=== PATIENT | female | born 1995 | race Caucasian/White ===

== ENCOUNTER 2018-02-16 03:28 | Emergency (ER) | payer MEDICAID ==
[~2018-02-16] VITALS: Ht 157.5 cm; Wt 68.5 kg
[~2018-02-16 03:28] MED LIST: CLIN-26 PO; IBUP-812 PO; NO HOME MEDS
[2018-02-16 03:41] VITALS: BP 142/87
[2018-02-16] MEDS ORDERED: amoxicillin 250mg capsule PO ONE (04:05)
[2018-02-16] MEDS ORDERED: ibuprofen tablet 400 MG TABLET PO ONE (04:05)
[2018-02-16] MEDS ORDERED: LIDOcaine Viscous 15ml cup TP ONE (04:05)
[2018-02-16] MEDS ORDERED: IBUP-1984 PO (04:18)
[2018-02-16] MEDS ORDERED: AMOX500C2 PO (04:18)
[2018-02-16] MEDS ORDERED: HYDR-3965 PO (04:18)
== END 2018-02-16 04:29 | disposition home or self-care (01) ==
LOC: ER 03:29
DX: S02.5XXB Fracture of tooth (traumatic), initial encounter for open fracture (principal); F17.200 Nicotine dependence, unspecified, uncomplicated; Z88.5 Allergy status to narcotic agent; X58.XXXA Exposure to other specified factors, initial encounter; Y93.89 Activity, other specified; Y92.89 Other specified places as the place of occurrence of the external cause; Y99.8 Other external cause status
CPT/HCPCS: 99284

== ENCOUNTER 2019-06-20 19:04 | Emergency (ER) | payer MEDICAID ==
[~2019-06-20] VITALS: Ht 160 cm; Wt 85.0 kg
[~2019-06-20 19:04] MED LIST changes: +DOCO2CRE TOP
[2019-06-20 19:12] VITALS: BP 130/88
[2019-06-20] MEDS ORDERED: diphenhydrAMINE 25mg capsule PO ONE (19:45)
== END 2019-06-20 19:58 | disposition home or self-care (01) ==
LOC: ER 19:05
DX: T63.441A Toxic effect of venom of bees, accidental (unintentional), initial encounter (principal); Z88.5 Allergy status to narcotic agent; Y92.89 Other specified places as the place of occurrence of the external cause
CPT/HCPCS: 99282; Q0163

== ENCOUNTER 2019-09-09 09:48 | Emergency (ER) | payer MEDICAID ==
[~2019-09-09] VITALS: Ht 157.5 cm; Wt 89.2 kg
[2019-09-09 09:48] VITALS: BP 164/71
[2019-09-09] MEDS ORDERED: VALA10002 PO (10:12)
== END 2019-09-09 10:22 | disposition home or self-care (01) ==
LOC: ER 09:48
DX: B00.9 Herpesviral infection, unspecified (principal); R05 Cough; F17.200 Nicotine dependence, unspecified, uncomplicated; F10.99 Alcohol use, unspecified with unspecified alcohol-induced disorder; F12.90 Cannabis use, unspecified, uncomplicated; Z88.5 Allergy status to narcotic agent; Z79.899 Other long term (current) drug therapy; Y90.9 Presence of alcohol in blood, level not specified
CPT/HCPCS: 99283

== ENCOUNTER 2019-10-30 07:05 | Emergency (ER) | payer MEDICAID ==
[~2019-10-30] VITALS: Ht 165.1 cm; Wt 80.0 kg
[~2019-10-30 07:05] MED LIST changes: +VALA10002 PO
[2019-10-30 07:07] VITALS: BP 148/99
[2019-10-30] MEDS ORDERED: CLIN150C8 PO (07:27)
[2019-10-30] MEDS ORDERED: ondansetron 4mg rapidly disintigrating tab PO ONE (07:30)
[2019-10-30] MEDS ORDERED: acetaminophen 325mg tablet PO ONE (07:30)
[2019-10-30] MEDS ORDERED: ibuprofen tablet 400 MG TABLET PO ONE (07:30)
[2019-10-30] MEDS ORDERED: clindamycin 150mg capsule PO ONE (07:30)
== END 2019-10-30 07:37 | disposition home or self-care (01) ==
LOC: ER 07:05
DX: N76.4 Abscess of vulva (principal); F12.90 Cannabis use, unspecified, uncomplicated; F10.99 Alcohol use, unspecified with unspecified alcohol-induced disorder; Z88.5 Allergy status to narcotic agent; Z79.899 Other long term (current) drug therapy; Y90.9 Presence of alcohol in blood, level not specified
CPT/HCPCS: 99284

== ENCOUNTER 2020-10-04 12:04 | Emergency (ER) | payer MEDICAID ==
[~2020-10-04] VITALS: Ht 160 cm; Wt 91.0 kg
[~2020-10-04 12:04] MED LIST changes: +CLIN150C8 PO
[2020-10-04 12:15] VITALS: BP 147/106
[2020-10-04] MEDS ORDERED: HYDR-3965 PO (13:08)
== END 2020-10-04 13:24 | disposition home or self-care (01) ==
LOC: ER 12:05
DX: S49.82XA Other specified injuries of left shoulder and upper arm, initial encounter (principal); M25.512 Pain in left shoulder; F12.90 Cannabis use, unspecified, uncomplicated; Z72.89 Other problems related to lifestyle; Z88.8 Allergy status to other drugs, medicaments and biological substances; Z79.2 Long term (current) use of antibiotics; Z79.899 Other long term (current) drug therapy; X58.XXXA Exposure to other specified factors, initial encounter; Y93.39 Activity, other involving climbing, rappelling and jumping off; Y92.89 Other specified places as the place of occurrence of the external cause; Y99.8 Other external cause status
CPT/HCPCS: 29105; 73030; 99283

== ENCOUNTER 2021-07-18 14:16 | Emergency (ER) | payer MEDICAID ==
[~2021-07-18] VITALS: Ht 162.6 cm; Wt 85.0 kg
[2021-07-18 14:21] VITALS: BP 148/103
[2021-07-18] MEDS ORDERED: ALBU8.5H17 IH (15:37)
[2021-07-18] MEDS ORDERED: DEXA6TAB6 PO (15:37)
== END 2021-07-18 16:19 | disposition home or self-care (01) ==
LOC: ER 14:18
DX: U07.1 COVID-19 (principal); F12.90 Cannabis use, unspecified, uncomplicated; Z88.8 Allergy status to other drugs, medicaments and biological substances; Z79.899 Other long term (current) drug therapy; Z79.2 Long term (current) use of antibiotics; Z72.89 Other problems related to lifestyle
CPT/HCPCS: 99283

== ENCOUNTER 2022-05-06 10:43 | Emergency (ER) | payer MEDICAID ==
[~2022-05-06 10:43] MED LIST changes: +ALBU8.5H17 IH; +DEXA6TAB6 PO
== END 2022-05-06 12:29 | disposition left against medical advice (07) ==
LOC: ER 10:44
DX: K04.7 Periapical abscess without sinus (principal); Z53.21 Procedure and treatment not carried out due to patient leaving prior to being seen by health care provider

== ENCOUNTER 2024-04-22 22:31 | Emergency (ER) | payer MEDICAID ==
[~2024-04-22] VITALS: Ht 162.6 cm; Wt 76.8 kg
[~2024-04-22 22:31] MED LIST changes: +CLIN-214 PO; -CLIN150C8 PO
[2024-04-23] MEDS: LIDOcaine 1% W/epiNEPHrine 1:100,000 20ml vial SQ ONE (02:35)
[2024-04-23] MEDS: LORazepam 1 MG tablet PO ONE (03:00)
[2024-04-23] MEDS ORDERED: CEPH-585 PO (03:40)
[2024-04-23] MEDS: cephalexin 250mg capsule PO ONE (04:09)
[2024-04-23] MEDS: ibuprofen tablet 400 MG TABLET PO ONE (04:09)
[2024-04-23 04:59] VITALS: BP 139/84; PULSE 65; RESP 18; TEMP 97.1; O2SAT 96
== END 2024-04-23 05:01 | disposition home or self-care (01) ==
LOC: ER 22:31
DX: L02.415 Cutaneous abscess of right lower limb (principal); L03.115 Cellulitis of right lower limb; F12.90 Cannabis use, unspecified, uncomplicated; Z88.5 Allergy status to narcotic agent; Z79.2 Long term (current) use of antibiotics; Z79.1 Long term (current) use of non-steroidal anti-inflammatories (NSAID); Z79.899 Other long term (current) drug therapy
CPT/HCPCS: 10060; 99284; A6449

== ENCOUNTER 2024-10-13 12:47 | Emergency (ER) | payer MEDICAID ==
[~2024-10-13] VITALS: Ht 162.6 cm; Wt 77.0 kg
[2024-10-13 12:54] VITALS: BP 134/92; PULSE 85; RESP 16; TEMP 97.9; O2SAT 100
[2024-10-13 13:36] LABS: URINE HCG NEGATIVE (NEG)
[2024-10-13 13:42] LABS: BILIRUBIN,URINE NEGATIVE (Neg); CLARITY,URINE SLIGHTLY CLOUDY (Clear); COLOR,URINE YELLOW (Yellow); GLUCOSE, URINE NEGATIVE (Neg); KETONES,URINE NEGATIVE (Neg); LEUKOCYTE ESTERASE ,URINE SMALL (Neg); NITRITES, URINE POSITIVE (Neg); OCCULT BLOOD,URINE LARGE (Neg); PH,URINE 6.5 (4.8-8.0); PROTEIN,URINE >=300 mg/dl (Neg); UROBILINOGEN,URINE 0.2 E.U/dL (0.2-1.0)
[2024-10-13 13:48] LABS: UA COLLECTION TYPE CLN CATCH MIDSTREAM
[2024-10-13 13:50] LABS: BACTERIA,URINE 1+ /HPF (Neg); MUCUS STRANDS NONE SEEN /LPF (Neg); SQUAMOUS EPITHELIAL CELL,UR FEW /LPF (FEW); WBC,URINE TNTC /HPF (0-4)
[2024-10-13] MEDS ORDERED: PHEN-716 PO (14:54)
[2024-10-13] MEDS ORDERED: CEPH-585 PO (14:54)
[2024-10-13] MEDS: cephalexin 500mg capsule PO ONE (15:02)
== END 2024-10-13 15:09 | disposition home or self-care (01) ==
LOC: ER 12:47
DX: N39.0 Urinary tract infection, site not specified (principal); F12.90 Cannabis use, unspecified, uncomplicated; F17.200 Nicotine dependence, unspecified, uncomplicated; Z79.1 Long term (current) use of non-steroidal anti-inflammatories (NSAID); Z79.899 Other long term (current) drug therapy; Z72.89 Other problems related to lifestyle
CPT/HCPCS: 81001; 81025; 87077; 87088; 87186; 99283

== ENCOUNTER 2025-07-03 11:57 | Emergency (ER) | payer MEDICAID ==
[~2025-07-03] VITALS: Ht 162.6 cm; Wt 76.8 kg
[~2025-07-03 11:57] MED LIST changes: +CEPH-585 PO; +PHEN-716 PO
--- NOTE | 2025-07-03 12:31 | RADIOLOGY REPORT ---
Indication: ELBOW PAIN Technique: DI ELBOW, COMPLETE (3VW MIN)ELBOW CMPL Comparison: None FINDINGS/IMPRESSION: No radiographic evidence for acute fracture or dislocation. No significant soft tissue edema. No rad iopaque foreign body.
[2025-07-03] MEDS: ketorolac trometh 30MG/ML vial 30 MG/ML VIAL IM ONE (13:57)
[2025-07-03] MEDS: HYDROcodone/acetaminophen 10/325mg tab PO ONE (13:58)
--- NOTE | 2025-07-03 14:00 | Physician Documentation ---
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 States she feels like her elbow dislocated or hyperextended temporarily. She now has increased pain and swelling lateral aspect of her left elbow along with radiating pain up to her shoulder. Denies any numbness or tingling Day of Onset: Jul 03, 2025 Tetanus within 5 years: Yes Medication Reconciliation Allergies: Coded Allergies: hydromorphone HCl (Verified Allergy, Intermediate, 04/22/24) Scheduled Cephalexin*Monohydrate* (Keflex*), 1 CAP PO QID Clindamycin HCl (Clindamycin HCl), 450 CAP PO TID Clindamycin HCl (Clindamycin HCl CAPSULE), 1 CAP PO TID Dexamethasone (Decadron), 1 TAB PO DAILY Docosanol (Abreva), 1 APPLIC TOP 5XD Ibuprofen (Motrin), 400 MG PO TID Phenazopyridine HCl (Pyridium), 1 TAB PO Q8H Valacyclovir HCl (Valtrex), 2 TAB PO Q12H Scheduled PRN Albuterol Sulfate (Proair Hfa), 2 PUFFS IH Q4H PRN for SOB or wheezing Miscellaneous Medications Home Med List (No Home Medications), (Reported) Past Medical History Past Medical History: No Pertinent History Past Surgical History: no surgical history Alcohol Use: Occasionally Drug Use: marijuana Lives with: Family Lives In: Home Occupation: student Physical Exam Vital Signs: Temperature: 98.8, Source: Oral, Heart Rate: 82, Respiratory Rate: 15, BP: 128/91, Pulse Oximetry: 96, Weight: 76.820 Oxygen Flow Rate: 0 Progress Results/Orders Results/Orders Completed Orders - KG ADAME NP Ketorolac Trometh 30mg/Ml Vial (Toradol (07/03/25 13:25) Hydrocodone/Apap 10/325 ([place] 10/325mg (07/03/25 13:40) Medications Received in ER Medications (Trade) Dose Ordered Sig/Emilie Route PRN Reason Start Time Stop Time Status Last Admin Dose Admin (Toradol inj. 30mg/ml) 30 mg ONCE ONCE IM 07/03/25 13:25 07/03/25 13:26 DC 07/03/25 13:57 30 MG ([place] 10/325mg tab) 1 tab ONCE ONCE PO 07/03/25 13:40 07/03/25 13:41 DC 07/03/25 13:58 1 TAB Vital Signs 07/03/25 07/03/25 07/03/25 07/03/25 12:03 13:18 13:57 13:58 Temp 98.8 98.8 Pulse 96 82 Resp 16 15 18 18 B/P (MAP) 142/102 128/91 (103) Pulse Ox 96 96 O2 Flow Rate 0 0 Medical Decision Making Findings I did not appreciate any signs of acute fracture and left elbow x-ray nor were there any sail signs or apparent. I do suspect potential internal derangement. Based on patient's complaint. You really needs to immobilizer for the next coming days and then begin a rehabilitation process. I do not feel comfortable releasing her to go back to work at this time. 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 feel this may exacerbate her injury Elbow Diff Dx:Considerations: Include: Abrasion, Arthritis, Contustion, DJD, Fracture-humerus, Fracture-radial head, Fracture-radius, Fracture-ulna, Gout, Hematoma, Laceration, Neurovascular injury, Olecranon bursitis, Open fracture, Osteomyelitis, Radial head subluxation, Rheumatoid arthritis, Septic, Sprain, Ulcer, Other Departure Disposition: 01 HOME / SELF CARE / HOMELESS Impression: Primary Impression: Arthropathy of elbow Condition: Stable Discharge Instructions: Elbow Injury Additional Instructions: Need to follow up with your worker's comp provider in order to go back to work. This important that you ice and keep the elbow immobilized in the next 2-3 days. Use ibuprofen as directed. Some times these things can resolve on their own however you may require an MRI for further evaluation Referrals: NO PRIMARY CARE PROVIDER (PCP) Signature Scribe Signature: c Attestation: Scribed for Kg Adame Music Theory Teacher by Kg Silva NP . 07/03/25 14:02 KG ADAME NP Jul 03, 2025 14:00
[2025-07-03 14:07] VITALS: BP 128/91; PULSE 77; RESP 18; TEMP 98.8; O2SAT 97
== END 2025-07-03 14:15 | disposition home or self-care (01) ==
LOC: ER 11:57
DX: M12.822 Other specific arthropathies, not elsewhere classified, left elbow (principal); F12.90 Cannabis use, unspecified, uncomplicated; Z88.5 Allergy status to narcotic agent; Z72.89 Other problems related to lifestyle
CPT/HCPCS: 29105; 73080; 96372; 99283; J1885; A4565; A6449

== ENCOUNTER → 2025-09-02 | Emergency (ER) | payer MEDICAID ==
[~2025-09-02] VITALS: Ht 162.6 cm; Wt 74.9 kg
[2025-09-02 20:49] VITALS: BP 168/111; PULSE 89; RESP 18; TEMP 97.1; O2SAT 100
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
== END | disposition left against medical advice (07) ==
LOC: ER 20:40
DX: R51.9 Headache, unspecified (principal); Z79.899 Other long term (current) drug therapy; V49.9XXA Car occupant (driver) (passenger) injured in unspecified traffic accident, initial encounter; Y93.89 Activity, other specified; Y92.89 Other specified places as the place of occurrence of the external cause; Y99.8 Other external cause status
CPT/HCPCS: 99282